=== PATIENT | female | born 1960 | race Caucasian/White ===

== ENCOUNTER → 2021-05-31 | Outpatient (CLI) | payer OTHER ==
[~2021-05-31] MED LIST: ASPIRIN EC81 MG PO; CHANTIX1 MG PO; FOLIC ACID 1 MG1 MG PO; MELATONIN3 M3 PO; NEURONTIN 300300 MG PO; NICOTINE PATCH1 EAC1 TOP; OMNICEF 300 MG300 MG PO; SODIUM CHLORIDE1 G1 PO; TAB-A-VITE1 EACH PO; TESSALON PERLE100 MG PO; THERAGRAN M TAB1 EA PO; VITAMIN B-1100 M1 PO
== END ==
LOC: CT 14:10
DX: R10.84 Generalized abdominal pain (principal); C25.9 Malignant neoplasm of pancreas, unspecified
CPT/HCPCS: 36415; 74170; 82565; 84520; Q9967